=== PATIENT | male | born 1980 | race Caucasian/White ===

== ENCOUNTER 2019-02-01 19:30 | Inpatient (IN) ==
[2019-02-01] MEDS ORDERED: ONDANSETRON 4 MG/2 ML VIAL IV STA ×2 (19:42→21:33)
[2019-02-01] MEDS ORDERED: methylPREDNISolone SOD SUC 125 MG/2 ML VIAL IV STA (19:42)
[2019-02-01] MEDS ORDERED: hydrALAZINE 20 MG/1 ML VIAL IV STA ×2 (19:42→21:23)
[2019-02-01 19:54] LABS: Basophils # 0.1 10*3/uL (0.0-0.2); Basophils % 0.6 % (0.0-0.8); Eosinophils # 0.9 10*3/uL (0.0-0.87); Eosinophils % 4.8 % (0.00-10.9); Hematocrit 51.5 VOL% (42.0-52.0); Hemoglobin 16.1 GM/DL (14.0-18.0); Immature Granulocytes % 0.5 %; Lymphocytes # 1.8 10*3/uL (1.4-4.0); Lymphocytes % 9.7 % (21.2-54.2); Mean Corpuscular HGB Conc 31.3 GM/DL (32-36); Mean Corpuscular Volume 92.3 FL (87-102); Mean Platelet Volume 11.4 FL (9.6-12.0); Monocytes % 6.9 % (1.7-12.7); Neutrophils % 77.5 % (38.7-73.9); Platelet Count 248 T/CUMM (130-400); Red Blood Count 5.58 MC/CUMM (3.8-5.5); Red Cell Distribution Width 13.4 % (9.3-17.3); White Blood Count 18.5 T/CUMM (4-12)
[2019-02-01] MEDS ORDERED: ALBUTEROL 2.5 MG/3 ML NEB RESP TX SCH (20:00)
[2019-02-01 20:03] LABS: INR 0.9; PT Patient Result 10.2 SECS
[2019-02-01] MEDS ORDERED: NITROGLYCERIN 2% OINT 1 INCH/GM PACK TOP ONE (20:13)
[2019-02-01 20:22] LABS: Alanine Aminotransferase 24 U/L (16-61); Alkaline Phosphatase 124 U/L (45-117); Aspartate Amino Transferase 21 U/L (0-37); Blood Urea Nitrogen 18 MG/DL (7-18); Calcium 8.7 MG/DL (8.5-10.1); Glucose 85 MG/DL (74-106); Osmolality,Calculated 279.4 MOS/KG (273-304)
[2019-02-01 20:24] LABS: Troponin I 0.245 NG/ML (0.00-0.045)
[2019-02-01 21:05] LABS: ABG Base Excess 2.3 MMOL/L (-2.5-2.5); ABG HCO3 25.2 MMOL/L (20-26); ABG Oxygen Saturation 95.2 % (95-100); ABG PCO2 34.2 MM HG (35-48); ABG PH 7.485 (7.35-7.45); ABG PO2 74.2 MM HG (80-95); ABG TCO2 26.2 MMOL/L (23-27); Allen Test Positive
[2019-02-01] MEDS ORDERED: POTASSIUM CHLORIDE 20 MEQ TABLET PO STA (21:32)
[2019-02-01] MEDS ORDERED: ENOXAPARIN 100 MG/ML SYRINGE SUBCUT STA (21:33)
[2019-02-01] MEDS ORDERED: MORPHINE 4 MG/1 ML VIAL IV STA (21:33)
[2019-02-01] MEDS ORDERED: ALBUTEROL 2.5 MG/3 ML NEB RESP TX PRN (23:47)
[2019-02-01] MEDS ORDERED: MORPHINE 4 MG/1 ML VIAL IV PRN (23:47)
[2019-02-01] MEDS ORDERED: NICOTINE 21 MG/24 HR PATCH TRANSDERM PRN (23:47)
[2019-02-01] MEDS ORDERED: ACETAMINOPHEN 325 MG TABLET PO PRN (23:47)
[2019-02-01] MEDS ORDERED: ONDANSETRON 4 MG/2 ML VIAL IV PRN (23:47)
[2019-02-01] MEDS ORDERED: DOCUSATE SODIUM 100 MG CAPSULE PO PRN (23:47)
[2019-02-01] MEDS ORDERED: POTASSIUM CHLORIDE 20 MEQ TABLET PO PRN (23:51)
[2019-02-02] MEDS: ALBUTEROL/IPRATROPIUM 3 ML NEB RESP TX SCH ×4 (00:10→19:22)
[2019-02-02] MEDS ORDERED: NITROGLYCERIN DRIP 50 MG/250 ML BOTTLE IV PRN (00:18)
[2019-02-02 01:26] LABS: Apearance,Urine CLEAR (Clear); Bilirubin,Urine Negative (Negative); Blood, Urine Negative (Negative); Glucose,Urine (UA) 50 mg/dL (Negative); Ketones,Urine Negative (Negative); Nitrite,Urine Negative (Negative); Protein,Urine 30 MG/DL; Squamous Epithelial Cell,Urine Occasional /HPF (0-10); Urine Color Yellow (Yellow); Urine Specific Gravity 1.014 (1.001-1.035); Urine Urobilinogen < 2.0 EU/DL (0.2-1.0); WBC,Urine 2 /HPF (0-6)
[2019-02-02 02:33] LABS: Basophils % 0.2 % (0.0-0.8); Hematocrit 46.1 VOL% (42.0-52.0); Hemoglobin 14.6 GM/DL (14.0-18.0); Immature Granulocytes % 0.4 %; Immature Granulocytes Absolute 0.07 #; Lymphocytes # 0.3 10*3/uL (1.4-4.0); Lymphocytes % 1.7 % (21.2-54.2); Mean Corpuscular HGB Conc 31.7 GM/DL (32-36); Mean Corpuscular Volume 91.1 FL (87-102); Mean Platelet Volume 11.8 FL (9.6-12.0); Monocytes % 0.6 % (1.7-12.7); Neutrophils % 97.1 % (38.7-73.9); Platelet Count 216 T/CUMM (130-400); Red Blood Count 5.06 MC/CUMM (3.8-5.5); Red Cell Distribution Width 13.5 % (9.3-17.3); White Blood Count 16.2 T/CUMM (4-12)
[2019-02-02 02:59] LABS: Calcium 8.6 MG/DL (8.5-10.1); Risk Ratio 2.79; Thyroid Stimulating Hormone 0.99 uIU/ml (0.358-3.74); VLDL CHOLESTEROL 6.4 MG/DL
[2019-02-02 03:06] LABS: Barbiturates Screen,Urine Negative (Negative); Benzodiazepines Screen,Urine Negative (Negative); Cannabinoid Screen,Urine Positive (Negative); Opiate Screen,Urine Positive (Negative); Phencyclidine Screen,Urine Negative (Negative)
[2019-02-02 03:53] LABS: Lymphocytes 1 % (20-55); Segmented Neutrophils 98 % (50-85); Total Cells Counted 100
[2019-02-02 03:54] LABS: Anisocytosis Slight; Microcytosis Slight
[2019-02-02 03:58] LABS: Platelet Estimate Normal
[2019-02-02] MEDS ORDERED: NIFEdipine 10 MG CAPSULE PO PRN (07:47)
[2019-02-02] MEDS ORDERED: DEXTROSE 50% 25 GM/50 ML SYRINGE IV PRN (07:50)
[2019-02-02] MEDS ORDERED: GLUCAGON 1 MG VIAL IM PRN (07:50)
[2019-02-02] MEDS: INSULIN LISPRO 100 UNIT/ML SUBCUT SCH ×4 (08:06→20:15)
[2019-02-02] MEDS ORDERED: ENOXAPARIN 80 MG/0.8 ML SYRINGE SUBCUT SCH (09:00)
[2019-02-02] MEDS: POTASSIUM CHLORIDE 20 MEQ TABLET PO SCH ×2 (09:05→13:53)
[2019-02-02] MEDS: PANTOPRAZOLE 40 MG TABLET PO SCH (09:05)
[2019-02-02] MEDS: cloNIDine 0.1 MG TABLET PO SCH ×4 (09:05→20:18)
[2019-02-02] MEDS: amLODIPine 10 MG TABLET PO SCH (09:05)
[2019-02-02] MEDS ORDERED: INSULIN LISPRO 100 UNIT/ML SUBCUT SCH (10:00)
[2019-02-02] MEDS: ASPIRIN EC 81 MG TABLET PO SCH (13:52)
[2019-02-02] MEDS: LISINOPRIL 5 MG TABLET PO SCH (13:52)
[2019-02-03] MEDS: ALBUTEROL/IPRATROPIUM 3 ML NEB RESP TX SCH ×4 (01:44→19:20)
[2019-02-03] MEDS: INSULIN LISPRO 100 UNIT/ML SUBCUT SCH ×5 (02:52→16:00)
[2019-02-03 04:48] LABS: Calcium 8.1 MG/DL (8.5-10.1); Osmolality,Calculated 285.1 MOS/KG (273-304)
[2019-02-03] MEDS: ASPIRIN EC 81 MG TABLET PO SCH (09:04)
[2019-02-03] MEDS: LISINOPRIL 5 MG TABLET PO SCH (09:04)
[2019-02-03] MEDS: ENOXAPARIN 40 MG/0.4 ML SYRINGE SUBCUT SCH (09:04)
[2019-02-03] MEDS: PANTOPRAZOLE 40 MG TABLET PO SCH (09:04)
[2019-02-03] MEDS: amLODIPine 10 MG TABLET PO SCH (09:04)
[2019-02-03] MEDS: LOSARTAN 25 MG TABLET PO SCH ×2 (09:25→22:26)
[2019-02-03] MEDS: POTASSIUM CHLORIDE 20 MEQ TABLET PO SCH ×2 (09:26→17:53)
[2019-02-03] MEDS: FUROSEMIDE 40 MG/4 ML VIAL IV SCH (14:37)
[2019-02-03] MEDS: CARVEDILOL 12.5 MG TABLET PO SCH ×2 (14:37→22:26)
[2019-02-04] MEDS: ALBUTEROL/IPRATROPIUM 3 ML NEB RESP TX SCH ×2 (00:35→07:19)
[2019-02-04 04:48] LABS: Calcium 8.4 MG/DL (8.5-10.1); Osmolality,Calculated 282.3 MOS/KG (273-304)
[2019-02-04 08:00] VITALS: BP 164/108
[2019-02-04] MEDS: LOSARTAN 25 MG TABLET PO SCH (08:49)
[2019-02-04] MEDS: PANTOPRAZOLE 40 MG TABLET PO SCH (08:49)
[2019-02-04] MEDS: ENOXAPARIN 40 MG/0.4 ML SYRINGE SUBCUT SCH (08:49)
[2019-02-04] MEDS: CARVEDILOL 12.5 MG TABLET PO SCH (08:49)
[2019-02-04] MEDS: amLODIPine 10 MG TABLET PO SCH (08:49)
[2019-02-04] MEDS: ASPIRIN EC 81 MG TABLET PO SCH (08:49)
[2019-02-04] MEDS: FUROSEMIDE 40 MG/4 ML VIAL IV SCH (08:54)
[2019-02-04] MEDS ORDERED: LOSARTAN 50 MG TABLET PO SCH (10:00)
[2019-02-04] MEDS ORDERED: CARVEDILOL 12.5 MG TABLET PO SCH (21:00)
== END 2019-02-04 12:30 | disposition home or self-care (01) | DRG 305 ==
LOC: N.ED 19:30 → N.EDINP 23:47 → SUATTDRO 23:47 → N.CC 02-02 01:30 → N.3E 02-03 18:15
PROVIDERS: ADMIT Internal Medicine; ATTEND Emergency Medicine